=== PATIENT | male | born 1950 | race Caucasian/White ===

== ENCOUNTER 2022-12-17 11:59 | Outpatient (RCR) | payer BC, MEDICARE ==
[~2022-12-17 11:59] MED LIST: LIDOCAINE VISC 2% SOLN 15 ML UDC ONE; MINERAL OIL/PETROLAT/GLYCERI 6OZ BTL ONE; TYLENOL # 31 EA PO
[2022-12-17] MEDS ORDERED: MUPIROCIN 2% OINT 22 GM TUBE ONE (12:42)
[2022-12-17] MEDS ORDERED: LIDOCAINE VISC 2% SOLN 15 ML UDC ONE (12:42)
[2022-12-17 14:26] LABS: BASOPHILS % 0.2 % (0.0-1.0); EOSINOPHILS # (AUTO) 0.1 (0.0-0.4); EOSINOPHILS % 1.1 % (0.0-6.0); HEMATOCRIT 38.2 % (38.2-49.6); HEMOGLOBIN 13.1 g/dL (14.0-18.0); LYMPHOCYTES # (AUTO) 0.4 (1.0-3.2); LYMPHOCYTES % 5.3 % (18.0-39.1); MEAN CORPUSCULAR HEMOGLOBIN 36.8 pg (28-32); MEAN CORPUSCULAR HGB CONC 34.3 g/dL (31-35); MEAN CORPUSCULAR VOLUME 107.3 fL (81-99); MONOCYTES # (AUTO) 0.4 (0.2-0.8); MONOCYTES % 5.5 % (4.4-11.3); NEUTROPHILS # (AUTO) 7.1 (2.1-6.9); NEUTROPHILS % 87.4 % (38.7-80.0); PLATELET COUNT 212 x10e3/uL (140-360); RED BLOOD COUNT 3.56 x10e6/uL (4.3-5.7); RED CELL DISTRIBUTION WIDTH 13.7 % (11.7-14.4)
[2022-12-17 14:38] LABS: ALBUMIN 3.4 g/dL (3.5-5.0); ANION GAP 16.1 mmol/L (8-16); CALCIUM 8.8 mg/dL (8.4-10.2); CREATININE, SERUM 1.08 mg/dL (0.72-1.25)
[2022-12-17 14:39] LABS: POTASSIUM 5.1 mmol/L (3.5-5.1)
== END 2022-12-20 ==
LOC: WCC 11:59
PROVIDERS: ATTEND Family Medicine Adult Medicine
DX: L89.624 Pressure ulcer of left heel, stage 4 (principal); S51.002A Unspecified open wound of left elbow, initial encounter; S51.001A Unspecified open wound of right elbow, initial encounter; S81.002A Unspecified open wound, left knee, initial encounter; S81.802A Unspecified open wound, left lower leg, initial encounter; R60.0 Localized edema; R23.8 Other skin changes
CPT/HCPCS: 36415; 80053; 83036; 84134; 85025; 86140

== ENCOUNTER 2023-01-07 10:07 | Outpatient (RCR) | payer BC, MEDICARE ==
[2023-01-07] MEDS ORDERED: LIDOCAINE VISC 2% SOLN 15 ML UDC ONE (13:21)
[2023-01-14] MEDS ORDERED: LIDOCAINE VISC 2% SOLN 15 ML UDC ONE (13:24)
== END 2023-01-20 ==
LOC: WCC 10:07
PROVIDERS: ATTEND Family Medicine Adult Medicine
DX: L89.624 Pressure ulcer of left heel, stage 4 (principal); S51.002A Unspecified open wound of left elbow, initial encounter; S51.001A Unspecified open wound of right elbow, initial encounter; S51.802A Unspecified open wound of left forearm, initial encounter; S41.102A Unspecified open wound of left upper arm, initial encounter; S81.002A Unspecified open wound, left knee, initial encounter; S81.802A Unspecified open wound, left lower leg, initial encounter; R60.0 Localized edema; R23.8 Other skin changes